=== PATIENT | female | born 1940 | race Caucasian/White ===

== ENCOUNTER → 2017-09-08 | Outpatient (CLI) | payer MEDICARE, BC | LOC: MC.RAD 09:20 | DX: Z12.31 Encounter for screening mammogram for malignant neoplasm of breast (principal) ==

== ENCOUNTER → 2018-10-27 | Outpatient (CLI) | payer MEDICARE, BC | LOC: MC.RAD 11:20 | DX: Z12.31 Encounter for screening mammogram for malignant neoplasm of breast (principal); Z85.3 Personal history of malignant neoplasm of breast ==

== ENCOUNTER → 2019-09-16 | Outpatient (CLI) | payer MEDICARE, BC | LOC: MC.RAD 09:15 | DX: Z85.3 Personal history of malignant neoplasm of breast (principal); Z53.9 Procedure and treatment not carried out, unspecified reason ==

== ENCOUNTER → 2019-11-01 | Outpatient (CLI) | payer MEDICARE, BC | LOC: MC.RAD 09:57 | DX: Z12.31 Encounter for screening mammogram for malignant neoplasm of breast (principal) ==

== ENCOUNTER → 2020-11-02 | Outpatient (CLI) | payer MEDICARE, BC | LOC: MC.RAD 10:30 | DX: Z12.31 Encounter for screening mammogram for malignant neoplasm of breast (principal); Z85.3 Personal history of malignant neoplasm of breast ==

== ENCOUNTER → 2021-12-24 | Outpatient (CLI) | payer MEDICARE, BC | LOC: MC.RAD 13:38 | DX: Z12.31 Encounter for screening mammogram for malignant neoplasm of breast (principal) ==

== ENCOUNTER → 2022-12-25 | Outpatient (CLI) | payer MEDICARE, BC | LOC: MC.RAD 13:56 | DX: Z12.31 Encounter for screening mammogram for malignant neoplasm of breast (principal); Z85.3 Personal history of malignant neoplasm of breast ==

== ENCOUNTER → 2023-12-26 | Outpatient (CLI) | payer MEDICARE, BC | LOC: CANSCHCLI → MC.RAD 12:46 | DX: Z12.31 Encounter for screening mammogram for malignant neoplasm of breast (principal); Z85.3 Personal history of malignant neoplasm of breast ==